=== PATIENT | male | born 1995 | race Hispanic/Latino ===

== ENCOUNTER 2021-12-24 19:48 | Emergency (ER) | payer SELFPAY ==
[2021-12-24] MEDS ORDERED: Acetaminophen 500 MG TAB ONE (20:31)
== END 2021-12-24 20:55 | disposition home or self-care (01) ==
LOC: BURERS 19:48 → EDBD 19:48 → BURERS 20:55
DX: U07.1 COVID-19 (principal)
CPT/HCPCS: 87804; 99283; U0003; U0005